=== PATIENT | female | born 1985 | race Caucasian/White ===

== ENCOUNTER 2018-08-09 22:40 | Emergency (ER) | payer MEDICAID ==
[~2018-08-09] VITALS: Ht 160 cm; Wt 100.4 kg
[2018-08-09] MEDS ORDERED: ONDANSETRON HCL 4MG/2ML INJ IV STA (23:50)
[2018-08-09] MEDS ORDERED: FAMOTIDINE 20MG/2ML VIAL IV STA (23:50)
[2018-08-09] MEDS ORDERED: SODIUM CHLORIDE 0.9% 1,000 ML IV ONE (23:50)
[2018-08-10] MEDS ORDERED: MORPHINE SULFATE 2 MG/ML CPJ (NOT FOR IM USE) IV ONE
[2018-08-10 00:01] LABS: BASOPHILS % 0.7 % (0.0-2.0); EOSINOPHILS % 2.5 % (0.0-5.0); LYMPHOCYTES % 36.1 % (20.0-50.0); MEAN CORPUSCULAR HEMOGLOBIN 28.8 pg (28.0-32.0); MEAN CORPUSCULAR VOLUME 86.6 fL (81.0-99.0); MEAN PLATELET VOLUME 7.9 fl (7.4-10.4); MONOCYTES % 6.6 % (2.0-8.0); NEUTROPHILS % 54.1 % (40.0-76.0); PLATELET 351 x1000/uL (130-400); RED BLOOD CELL COUNT 4.51 mill/uL (4.2-5.4); RED CELL DISTRIBUTION WIDTH 13.5 % (11.6-14.6)
[2018-08-10 00:05] LABS: CHLORIDE 104 mEq/L (98-107)
[2018-08-10 00:08] LABS: PROTHROMBIN TIME 10.3 sec (9.6-11.0)
[2018-08-10] MEDS ORDERED: MORPHINE SULFATE 4 MG/ML CPJ (NOT FOR IM USE) IV SCH (00:15)
[2018-08-10 00:22] LABS: HCG SCREEN NEGATIVE
[2018-08-10 01:17] LABS: CLARITY URINE CLEAR (CLEAR); COLOR URINE YELLOW (YELLOW); KETONES URINE NEGATIVE (NEGATIVE); LEUKOCYTE ESTERASE URINE NEGATIVE (NEGATIVE); NITRITE URINE POSITIVE (NEGATIVE); OCCULT BLOOD URINE NEGATIVE (NEGATIVE); PH URINE 6.5 (4.5-8.0); PROTEIN URINE NEGATIVE (NEGATIVE); SPECIFIC GRAVITY URINE 1.014 (1.005-1.030); UROBILINOGEN URINE 0.2 E.U./dL (0.2-1.0)
[2018-08-10] MEDS ORDERED: CEFTRIAXONE 1 G PREMIX 50 ML IV ONE (02:45)
[2018-08-10] MEDS ORDERED: KETOROLAC 30MG/ML VIAL IV ONE (02:45)
[2018-08-10] MEDS ORDERED: MORPHINE SULFATE 4 MG/ML CPJ (NOT FOR IM USE) IV ONE (02:45)
[2018-08-10 03:32] VITALS: BP 128/85
== END 2018-08-10 03:33 | disposition home or self-care (01) ==
LOC: ER 22:40
DX: N39.0 Urinary tract infection, site not specified (principal); N10 Acute pyelonephritis
CPT/HCPCS: 36415; 74176; 80053; 81003; 81025; 83605; 83690; 84703; 85025; 85610; 96361; 96365; 96375; 96376; 99284; J0696; J1885; J2270; J2405; J3490; J7030; Z7610

== ENCOUNTER 2020-06-05 09:52 | Emergency (ER) | payer MEDICAID ==
[~2020-06-05] VITALS: Ht 157.5 cm; Wt 100.0 kg
[2020-06-05] MEDS ORDERED: KETOROLAC 60MG/2ML VIAL IM STA (10:23)
[2020-06-05] MEDS ORDERED: ACETAMINOPHEN WITH CODEINE 300/30MG TABLET PO STA (10:23)
[2020-06-05 10:33] VITALS: BP 135/79
[2020-06-05 13:18] LABS: CLARITY URINE CLEAR (CLEAR); COLOR URINE YELLOW (YELLOW); KETONES URINE NEGATIVE (NEGATIVE); LEUKOCYTE ESTERASE URINE NEGATIVE (NEGATIVE); NITRITE URINE NEGATIVE (NEGATIVE); OCCULT BLOOD URINE NEGATIVE (NEGATIVE); PROTEIN URINE NEGATIVE (NEGATIVE); UROBILINOGEN URINE 0.2 E.U./dL (0.2-1.0)
[2020-06-05] MEDS ORDERED: T3 PO (13:30)
[2020-06-05] MEDS ORDERED: NAPR-1074 PO (13:30)
[2020-06-05] MEDS ORDERED: CYCL25PO21 MT (13:37)
== END 2020-06-05 13:51 | disposition home or self-care (01) ==
LOC: ER 10:09
DX: M54.5 Low back pain (principal); R30.0 Dysuria
CPT/HCPCS: 81003; 81025; 96372; 99283; J1885